=== PATIENT | female | born 1970 | race Caucasian/White ===

== ENCOUNTER 2019-06-02 11:26 | Emergency (ER) | payer MEDICARE, OTHER ==
[~2019-06-02] VITALS: Ht 160 cm; Wt 95.5 kg
[2019-06-02 11:54] VITALS: BP 144/88
[2019-06-02] MEDS ORDERED: LIDOcaine Viscous 15ml cup MM STA (12:24)
[2019-06-02] MEDS ORDERED: acetaminophen 325mg tablet PO ONE (13:35)
--- NOTE | 2019-06-02 13:52 | NUR ---
PREPARING TO DC PATIENT, TEMPERATURE RECHECK IS 103.0 ORALLY. PROVIDER NOTIFIED OF INCREASED FEVER. ORDER OBTAINED TO GIVEN TYLENOL AND GET FLU SWAB. PATIENT INFORMED OF ADDITIONAL PLAN TO CARE AND IS COOPERATIVE WITH PLAN.
== END 2019-06-02 14:10 | disposition home or self-care (01) ==
LOC: ER 11:27
DX: J02.9 Acute pharyngitis, unspecified (principal); Z88.0 Allergy status to penicillin; Z88.1 Allergy status to other antibiotic agents
CPT/HCPCS: 87081; 87502; 87503; 87880; 99283